=== PATIENT | female | born 1970 | race Caucasian/White ===

== ENCOUNTER 2016-05-15 10:46 | Outpatient (CLI) | payer BC | END 2016-05-15 10:47 | disposition home or self-care (01) | DX: Z12.31 Encounter for screening mammogram for malignant neoplasm of breast (principal) ==

== ENCOUNTER 2019-05-10 08:18 | Outpatient (CLI) | payer BC ==
--- NOTE | 2019-05-10 08:57 | Mammography Report ---
Reason: ROUTINE MAMMO Procedure Date: 05/10/2019 Accession Number: [id number] / [id number] Procedure: MGS - Screening Mammo Dig Bilat CPT Code: Final Report FULL RESULT: EXAM: Screening Mammo Dig Bilat DATE: 05/10/2019 8:38 AM CLINICAL HISTORY: Screening encounter. TECHNIQUE: (B) - Bilateral CC and MLO views were obtained. A left laterally exaggerated CC view is obtained. COMPARISON: 05/15/2016 through 04/25/2011. PARENCHYMAL PATTERN: (A) - The breast(s) demonstrate(s) scattered fibroglandular densities. FINDINGS: Coarse typically benign calcifications are again demonstrated. There are no suspicious masses, calcifications, or areas of distortion. IMPRESSION: Benign findings. BI-RADS category 2. RECOMMENDATION: (ANNUAL) - Recommend routine annual screening mammography. BI-RADS CATEGORY: (2) - Benign Findings. STANDARD QUALIFYING STATEMENTS: 1. This examination was reviewed with the aid of Computer-Aided Detection (CAD). 2. A negative or benign imaging report should not preclude biopsy if clinically suspicious findings are present. 3. Dense breasts may obscure an underlying neoplasm. 4. This examination was reviewed without the aid of 3D breast imaging (tomosynthesis).
== END 2019-05-10 08:19 | disposition home or self-care (01) ==
LOC: DI.S 08:18
PROVIDERS: ATTEND Registered Nurse
DX: Z12.31 Encounter for screening mammogram for malignant neoplasm of breast (principal)
CPT/HCPCS: 77067

== ENCOUNTER 2019-05-10 08:23 | Outpatient (CLI) | payer BC ==
[2019-05-10 09:58] LABS: BASOPHILS # (AUTO) 0.1 10^3/uL (0.0-0.1); BASOPHILS % (AUTO) 0.8 %; EOSINOPHILS # (AUTO) 0.5 10^3/uL (0.0-0.7); EOSINOPHILS % (AUTO) 7.2 %; HGB - HEMOGLOBIN 12.3 g/dL (12.0-16.0); MEAN CORPUSCULAR HEMOGLOBIN 27.3 pg (27.0-31.0); MEAN CORPUSCULAR HGB CONC 30.8 g/dL (32.0-36.0); MEAN CORPUSCULAR VOLUME 88.9 fL (81.0-99.0); MEAN PLATELET VOLUME 11.3 fL (7.9-10.8); MONOCYTES # (AUTO) 0.5 10^3/uL (0.0-1.0); MONOCYTES % (AUTO) 7.4 %; NEUTROPHILS # (AUTO) 3.4 10^3/uL (1.5-6.6); NEUTROPHILS % (AUTO) 53.4 %; PLT - PLATELET COUNT 315 10^3/uL (130-450); RED CELL DISTRIBUTION WIDTH 14.5 % (12.0-15.0); WHITE BLOOD COUNT 6.4 x10^3/uL (4.8-10.8)
[2019-05-10 10:11] LABS: CHOL/HDL RATIO 4.3 (<4.4); CHOLESTEROL 243 mg/dL; HDL CHOLESTEROL 57 mg/dL; LDL CHOLESTEROL,CALCULATED 162 mg/dL; LDL/HDL RATIO 2.8 (<4.4); VLDL CHOLESTEROL 24 mg/dL
[2019-05-10 10:20] LABS: HB2 TOTAL 12.6 g/dL; HEMOGLOBIN A1C 0.5 g/dL; HEMOGLOBIN A1C % 5.8 % (4.6-6.2)
[2019-05-11 16:16] LABS: ALBUMIN 4.3 g/dL (3.2-5.5); ALBUMIN/GLOBULIN RATIO 1.3 (1.0-2.2); BILIRUBIN,TOTAL 0.4 mg/dL (0.2-1.0); CALCIUM 9.1 mg/dL (8.5-10.3); CREATININE 0.8 mg/dL (0.4-1.0); TOTAL PROTEIN 7.7 g/dL (6.7-8.2)
== END 2019-05-10 08:24 | disposition home or self-care (01) ==
LOC: LAB.S 08:23
PROVIDERS: ATTEND Registered Nurse
DX: Z00.00 Encounter for general adult medical examination without abnormal findings (principal); R73.03 Prediabetes
CPT/HCPCS: 36415; 80053; 80061; 83036; 83721; 85025

== ENCOUNTER 2021-07-02 10:49 | Outpatient (CLI) | payer BC ==
--- NOTE | 2021-07-03 11:28 | Mammography Report ---
BILATERAL DIGITAL SCREENING MAMMOGRAM 3D/2D: 07/02/2021 CLINICAL: Routine screening. Comparison is made to exams dated: 05/10/2019 mammogram, 05/15/2016 mammogram, and 02/16/2014 mammogram - [facility]. There are scattered fibroglandular elements in both breasts. No significant masses, calcifications, or other findings are seen in either breast. There has been no significant interval change. IMPRESSION: NEGATIVE There is no mammographic evidence of malignancy. A 1 year screening mammogram is recommended. This exam was interpreted at Station ID: [id number]. NOTE: For mammograms, a report in lay terms will be sent to the patient. Approximately 15% of breast malignancies will not be visualized mammographically. In the management of a palpable breast mass, a negative mammogram must not discourage biopsy of a clinically suspicious lesion. Electronically Signed By: Renard Beebe M.D. aty/penrad:07/02/2021 17:04:32 ACR BI-RADS Category 1: Negative 3341F PARENCHYMAL PATTERN: (A) - The breast(s) demonstrate(s) scattered fibroglandular densities. BI-RADS CATEGORY: (1) - 1 RECOMMENDATION: (ANNUAL) - Recommend routine annual screening mammography. [id number] 1 year screening LATERALITY: (B)
== END 2021-07-02 10:50 | disposition home or self-care (01) ==
LOC: DI.S 10:49
PROVIDERS: ATTEND Registered Nurse
DX: Z12.31 Encounter for screening mammogram for malignant neoplasm of breast (principal)

== ENCOUNTER 2023-12-29 10:51 | Outpatient (CLI) | payer BC ==
--- NOTE | 2023-12-30 15:30 | Mammography Report ---
BILATERAL DIGITAL SCREENING MAMMOGRAM 3D/2D: 12/29/2023 CLINICAL: Routine screening. Comparison is made to exams dated: 07/02/2021 mammogram, 05/10/2019 mammogram, and 05/15/2016 mammogram - [facility]. There are scattered areas of fibroglandular density (category b / 25%-50% glandular tissue). No significant masses, calcifications, or other findings are seen in either breast. There has been no significant interval change. IMPRESSION: NEGATIVE There is no mammographic evidence of malignancy. A 1 year screening mammogram is recommended. Based on the Tyrer Cuzick model (a risk assessment model) the patient's lifetime risk is 9.1% and her 10 year risk is 2.3%. According to the ACR, ACS, and NCCN guidelines, an annual breast MRI exam isidro g with mammogram is recommended if the patient's lifetime risk is 20% or greater. This exam was interpreted at Station ID: [id number]. NOTE: For mammograms, a report in lay terms will be sent to the patient. Approximately 15% of breast malignancies will not be visualized mammographically. In the management of a palpable breast mass, a negative mammogram must not discourage biopsy of a clinically suspicious lesion. Electronically Signed By: Win vasquez/tara:12/29/2023 13:34:12 letter sent: No_Letter ACR BI-RADS Category 1: Negative 3341F PARENCHYMAL PATTERN: (A) - The breast(s) demonstrate(s) scattered fibroglandular densities. BI-RADS CATEGORY: (1) - 1 RECOMMENDATION: (ANNUAL) - Recommend routine annual screening mammography. [id number] 1 year screening LATERALITY: (B)
== END 2023-12-29 10:52 | disposition home or self-care (01) ==
LOC: DI.S 10:51
PROVIDERS: ATTEND Registered Nurse
DX: Z12.31 Encounter for screening mammogram for malignant neoplasm of breast (principal)